=== PATIENT | female | born 1960 ===

== ENCOUNTER → 2024-01-05 10:05 | Outpatient (REF) | payer BC, SELFPAY | LOC: RAD 10:05 | PROVIDERS: ATTENDING PHYSICIAN Family Medicine | DX: R60.0 Localized edema (principal) | CPT/HCPCS: 93970 ==

== ENCOUNTER 2024-05-19 11:34 | Emergency (ER) | payer BC, SELFPAY ==
[2024-05-19 11:41] VITALS: BP 153/83
[2024-05-19 12:01] LABS: % Basophils 0.4 % (0-2); % Eosinophils 3.6 % (0-6); % Immature Granulocytes 0.3 % (0-0.5); % Lymphocytes 20.3 % (20.5-51.1); % Monocytes 10.7 % (1.7-9.3); % Neutrophils 64.7 % (42.2-75.2); Absolute Eosinophils 0.3 10^3/uL (0-0.7); Absolute Lymphocytes 1.4 10^3/uL (1.2-3.4); Absolute Monocytes 0.8 10^3/uL (0.1-0.6); Absolute Neutrophils 4.5 10^3/uL (1.4-6.5); Hematocrit 35.5 % (37.0-47.0); Hemoglobin 11.1 g/dL (12.0-16.0); Mean Corp Hgb Conc. 31.3 g/dL (33.0-37.0); Mean Corpuscular Hgb 30.6 pg (27.0-31.0); Mean Corpuscular Volume 97.8 fL (81.0-99.0); Mean Platelet Volume 9.1 fL (7.4-10.4); Nucleated Red Blood Cells % 0 %; Platelet Count 289 10^3/uL (130-400); Red Blood Cell Count 3.63 10^6/uL (4.20-5.40); Red Cell Dist. Width 14.5 % (11.5-14.5)
[2024-05-19 12:11] LABS: ALT (SGPT) 51 U/L (0-35); AST (SGOT) 36 U/L (14-36); Albumin 4.1 g/dl (3.5-5.0); Alkaline Phosphatase 144 U/L (38-126); Blood Urea Nitrogen 15 mg/dl (7-17); Calcium 10.7 mg/dl (8.4-10.2); Carbon Dioxide 25 mmol/L (22-30); Chloride 107 mmol/L (98-107); Glucose 108 mg/dl (70-99); Potassium 4.5 mmol/L (3.5-5.1); Sodium 139 mmol/L (135-145); Total Bilirubin 0.4 mg/dl (0.2-1.3); Total Protein 6.5 g/dl (6.3-8.2); eGFR > 60.00
--- NOTE | 2024-05-19 13:27 | ED.GENMED ---
History of Present Illness
General
Chief Complaint: Swelling
Source: patient
Exam Limitations: none
Time Seen by Provider: 05/19/24 12:52
Nursing documentation reviewed up to this point in time: agreed with
History of Present Illness
History of Present Illness:
64 yo female with NIDDM, heart murmur, presents for bilateral leg swelling, redness. Had lumbar fusion with rods and screws at [address] 04/12. 2 weeks later had whit removed, legs were swollen, surgeon told her not unusual after surgery. She
started wearing compression stockings. She has been ambulating well with walker, lives alone and 'I've been doing too much.' She sleeps sitting up on her couch ever since surgery due to pain and inability to get up once she is laying down. Saw her
PCP today who was concerned about the length of time of swelling so sent her here to r/o DVT. Pt denies CP, SOB. Has numbness and tingling in feet due to swelling. Denies fever/chills.
Past History
Past History
ED Past Medical History: NIDDM
ED Past Surgical History: Orthopedic
Social History
Tobacco: Non-smoker
Alcohol: Occasional
Personal: Single
Living: alone
Review of Systems
Review of Systems
Allergies reviewed?: Yes
All Other Systems: ROS reviewed and negative except as documented in HPI and ROS
Constitutional: Denies fever or chills
Respiratory: Denies cough or trouble breathing
Cardiac: Denies chest pain
ABD/GI: Denies abdominal pain, nausea, constipated or anorexia
: Denies dysuria, frequency or difficulty voiding
Musculoskeletal: Reports edema (Both lower extremities from thighs to toes) and back pain (Recovering from recent back surgery)
Neurological: Reports numbness (And tingling in feet from the swelling); Denies weakness
Phy Exam
Physical Exam
Physical Exam:
GENERAL: No acute distress. A&Ox3.
CONSTITUTIONAL: Afebrile.
RESPIRATORY: Regular respirations, nonlabored, lungs clear.
CARDIOVASCULAR: Regular rate and rhythm, no murmurs, no rubs.
GI: Soft, nontender, normal BS
MUSCULOSKELETAL: Both legs are 1-2+ swollen, reddened, mildly warm, nontender. Feet and ankles are 2+ swelling, normal pedal pulse, brisk capillary refill. Moves with ease. Ambulates well with her walker. Well perfused.
SKIN: Warm, dry, pink
PSYCH: Normal mood and affect. Well kept, interactive and appropriate
NEUROLOGIC: Awake, alert and oriented. No focal neurological deficits
Scores
Heart Failure Risk
Heart Failure Risk Score: Not Applicable
Course
Orders/Labs/Results
Orders:
Orders
05/19/24 11:45
US Periph Venous LOWER Ext Vernon Urgent
Comment:
Reason For Exam: swelling
05/19/24 11:49
CMP [Comprehensive Metabolic Panel] Urgent
Complete Blood Count/With Diff Urgent
Abnormal Lab Results
05/19/24
11:49
RBC 3.63 L 10^6/uL
(4.20-5.40)
Hgb 11.1 L g/dL
(12.0-16.0)
Hct 35.5 L %
(37.0-47.0)
MCHC 31.3 L g/dL
(33.0-37.0)
Absolute Monos (auto) 0.8 H 10^3/uL
(0.1-0.6)
Lymphocytes % 20.3 L %
(20.5-51.1)
Monocytes % 10.7 H %
(1.7-9.3)
Glucose 108 H mg/dl
(70-99)
Calcium 10.7 H mg/dl
(8.4-10.2)
ALT 51 H U/L
(0-35)
Alkaline Phosphatase 144 H U/L
(38-126)
05/19/24 11:49
05/19/24 11:49
Vital Signs
Initial and Last Documented VS:
Initial Vital Signs
Temp Pulse Resp BP Pulse Ox
98.2 F 98 16 153/83 99
05/19/24 11:41 05/19/24 11:41 05/19/24 11:41 05/19/24 11:41 05/19/24 11:41
Last Documented Vital Signs
Temp Pulse Resp BP Pulse Ox
98.2 F 87 18 142/78 97
05/19/24 11:41 05/19/24 14:14 05/19/24 14:14 05/19/24 14:14 05/19/24 14:14
MDM/Problems Addressed
Differential Diagnosis Includes:
DVT, dependent edema
MDM/Problems Addressed:
64 yo female with NIDDM, heart murmur, presents for bilateral leg swelling, redness. Had lumbar fusion with rods and screws at [address] 16. 2 weeks later had whit removed, legs were swollen, surgeon told her not unusual after surgery. She
started wearing compression stockings. She has been ambulating well with walker, lives alone and 'I've been doing too much.' She sleeps sitting up on her couch ever since surgery due to pain and inability to get up once she is laying down. Saw her
PCP today who was concerned about the length of time of swelling so sent her here to r/o DVT. Pt denies CP, SOB. Has numbness and tingling in feet due to swelling. Denies fever/chills.
Pt states her legs are always 'blotchy'
CBC, CMP with no clinically significant abnormality
US neg for DVT
History and exam consistent with dependent edema. Patient encouraged to not sleep sitting up as this is cutting off the circulation from the groin to her legs.
Pt ambulated out with walker to care of friend
*Critical Care Note
Total Time (30-74mins, 75-104mins- exclusive of procedures): Not Applicable
ED Attending Note
-
Portions of this chart may have been created with voice recognition software.� Occasional wrong word or��sound alike� substitutions may have occurred due to the inherent limitations of voice recognition software.
Discharge Plan
Departure
Patient Disposition: Home (Routine Discharge)
Date of Disposition: 05/19/24
Time of Disposition: 14:06
Patient with high blood pressure during this ER visit?: No
Condition: Good
Discharge Problem:
Dependent edema
Instructions: Dependent Edema (DC)
Prescriptions:
No Action
cephalexin 500 MG capsule
500 mg PO QID Qty: 0 0RF
Referrals:
Heydi Horner MD [Family Provider] - As needed
Activity Restrictions/Additional Instructions:
As we discussed, your ultrasound is negative for clots.
You have dependent edema most likely from sleeping in a sitting up position where the circulation from your groin is not getting to your lower legs.
Try sleeping in a position where your legs are not bent at a 90 degree angle, at least at a 30 or 40 degree angle will help.
Compression stockings also will help
Interventions
Interventions:
*Risk Screen - Suicide Last Done: 05/19/24 14:15
*General Assessment Last Done: 05/19/24 11:41
*Neglect/Abuse Screening Last Done: 05/19/24 14:15
ED- Fall Risk Assessment Last Done: 05/19/24 13:11
*ED COVID-19 Vaccine History Last Done: 05/19/24 11:41
*Nursing Disposition Last Done: 05/19/24 14:15
ED- Cardiac Assessment Last Done: 05/19/24 13:11
ED- Pulmonary Assessment Last Done: 05/19/24 13:11
ED-Skin Assessment Last Done: 05/19/24 13:11
Discharge Date and Time
Discharge Date/Time: 05/19/24 14:16
Print Language: HEBREW
[2024-05-19 14:14] VITALS: BP 142/78
== END 2024-05-19 14:16 | disposition home or self-care (01) ==
LOC: EMR 11:34
PROVIDERS: Emergency Medicine; EMERGENCY PHYSICIAN Emergency Medicine; FAMILY PHYSICIAN Family Medicine
DX: R60.0 Localized edema (principal); R20.0 Anesthesia of skin; R20.2 Paresthesia of skin; E11.9 Type 2 diabetes mellitus without complications; R01.1 Cardiac murmur, unspecified; Z98.1 Arthrodesis status; Z98.890 Other specified postprocedural states; Z91.048 Other nonmedicinal substance allergy status; Z79.84 Long term (current) use of oral hypoglycemic drugs
CPT/HCPCS: 99284; 80053; 85025; 93970

== ENCOUNTER → 2025-03-27 13:48 | Outpatient (REF) | payer BC, SELFPAY | LOC: WDC 13:48 | PROVIDERS: ATTENDING PHYSICIAN Family Medicine | DX: Z12.31 Encounter for screening mammogram for malignant neoplasm of breast (principal) | CPT/HCPCS: 77063; 77067 ==

== ENCOUNTER 2025-06-20 06:20 | Day surgery (SDC) | payer BC, SELFPAY ==
[2025-06-20 07:39] LABS: Glucose - Point of Care 90 mg/dl (70-99)
== END 2025-06-20 09:34 | disposition home or self-care (01) ==
LOC: GI 06:20
PROVIDERS: ATTENDING PHYSICIAN Internal Medicine
DX: Z12.11 Encounter for screening for malignant neoplasm of colon (principal); R19.5 Other fecal abnormalities; K64.8 Other hemorrhoids; Z83.710 Family history of adenomatous and serrated polyps; Z80.0 Family history of malignant neoplasm of digestive organs; D12.5 Benign neoplasm of sigmoid colon; D12.7 Benign neoplasm of rectosigmoid junction; D12.2 Benign neoplasm of ascending colon
CPT/HCPCS: 45385; 82962; 88305